=== PATIENT | male | born 1980 | race Caucasian/White ===

== ENCOUNTER 2018-09-30 10:02 | Day surgery (SDC) | payer OTHER ==
[~2018-09-30] VITALS: Ht 175.3 cm; Wt 85.5 kg
[2018-09-30] MEDS ORDERED: LACTATED RINGERS 1,000 ML IV SCH (10:36)
[2018-09-30] MEDS ORDERED: NONE PER PT (10:37)
[2018-09-30 11:06] VITALS: BP 121/80
[2018-09-30] MEDS ORDERED: FENTANYL PF 100 MCG/2ML ONE ×2 (12:12→14:30)
[2018-09-30] MEDS ORDERED: MIDAZOLAM 1 MG/ML, 2ML ONE (12:12)
[2018-09-30] MEDS ORDERED: BUPIVACAINE/PF 0.25% ONE (12:48)
[2018-09-30] MEDS ORDERED: EPINEPHRINE 1 MG/ML, 1ML ONE (12:48)
[2018-09-30] MEDS ORDERED: FENTANYL PF 250 MCG/5ML ONE (13:08)
[2018-09-30] MEDS ORDERED: SUCCINYLCHOLINE 20 MG/ML, 10ML ONE (13:35)
[2018-09-30] MEDS ORDERED: PROPOFOL 10 MG/ML, 20ML ONE (13:35)
[2018-09-30] MEDS ORDERED: DEXAMETHASONE 4 MG/ML, 1ML ONE (13:35)
[2018-09-30] MEDS ORDERED: GLYCOPYRROLATE 0.2MG/1ML, 5ML ONE (13:35)
[2018-09-30] MEDS ORDERED: ROCURONIUM 10MG/ML,5ML ONE (13:35)
[2018-09-30] MEDS ORDERED: NEOSTIGMINE 1 MG/ML, 10ML ONE (13:35)
[2018-09-30] MEDS ORDERED: CEFAZOLIN 1,000 MG ONE (13:35)
[2018-09-30] MEDS ORDERED: ONDANSETRON 2MG/ML, 2ML ONE (13:35)
[2018-09-30] MEDS ORDERED: BUPIVACAINE/PF 0.25% INFIL ONE (13:36)
[2018-09-30] MEDS ORDERED: MEPERIDINE/PF 100 MG/ML ONE (13:59)
[2018-09-30] MEDS: FENTANYL PF 100 MCG/2ML IV PRN ×2 (14:25→14:35)
[2018-09-30] MEDS ORDERED: OXYcodone 5 MG/5 ML ORAL.SOL UDC ONE (14:52)
[2018-09-30] MEDS ORDERED: ONDANSETRON 2MG/ML, 2ML IV PRN (15:00)
[2018-09-30] MEDS ORDERED: OXYcodone 5 MG/5 ML ORAL.SOL UDC PO PRN ×2 (15:00→15:30)
[2018-09-30] MEDS ORDERED: LABETALOL 5MG/ML, 20ML IV PRN ×2 (15:00→15:30)
[2018-09-30] MEDS ORDERED: PROMETHAZINE 25 MG/ML, 1ML IV PRN ×2 (15:00→15:30)
[2018-09-30] MEDS ORDERED: MIDAZOLAM 1 MG/ML, 2ML IV PRN (15:00)
[2018-09-30] MEDS ORDERED: KETOROLAC 30 MG/1 ML IV PRN ×2 (15:00→15:30)
[2018-09-30] MEDS ORDERED: MEPERIDINE/PF 25MG/0.5ML IVPush PRN ×2 (15:00→15:30)
[2018-09-30] MEDS ORDERED: hydrALAzine 20 MG/ML, 1ML IV PRN ×2 (15:00→15:30)
[2018-09-30] MEDS ORDERED: ACETAMINOPHEN 325 MG TABLET PO PRN ×2 (15:00→15:30)
[2018-09-30] MEDS ORDERED: HYDROmorphone 2 MG/ML, 1ML ONE (15:05)
[2018-09-30] MEDS: HYDROmorphone 2 MG/ML, 1ML IVPush PRN ×2 (15:05→15:25)
[2018-09-30] MEDS ORDERED: KETOROLAC 30 MG/1 ML ONE (15:20)
[2018-09-30] MEDS ORDERED: FENTANYL PF 100 MCG/2ML IV PRN (15:30)
[2018-09-30] MEDS ORDERED: ALBUTEROL SULFATE 2.5 MG/3 ML NPPB PRN (15:30)
[2018-09-30] MEDS ORDERED: HYDROmorphone 2 MG/ML, 1ML IVPush PRN (15:30)
[2018-09-30] MEDS ORDERED: DIAZEPAM 5 MG/ML, 2ML IVPush PRN (15:30)
== END 2018-09-30 17:25 | disposition home or self-care (01) ==
LOC: OUT 10:02
PROVIDERS: ATTEND Orthopaedic Surgery
DX: S86.812A Strain of other muscle(s) and tendon(s) at lower leg level, left leg, initial encounter (principal); Z72.89 Other problems related to lifestyle; Z82.49 Family history of ischemic heart disease and other diseases of the circulatory system; X50.1XXA Overexertion from prolonged static or awkward postures, initial encounter; Y93.68 Activity, volleyball (beach) (court); Y92.89 Other specified places as the place of occurrence of the external cause; Y99.8 Other external cause status
CPT/HCPCS: 27380; J0171; J0330; J0690; J1100; J1170; J1885; J2175; J2250; J2405; J2704; J2710; J3010; J3490; J7120